=== PATIENT | male | born 1995 | race African-American/Black ===

== ENCOUNTER → 2018-12-22 | Outpatient (CLI) | payer OTHER | LOC: OD 09:33 | PROVIDERS: ATTEND Otolaryngology | DX: J30.9 Allergic rhinitis, unspecified (principal) | CPT/HCPCS: 36415; 82785; 86003 ==

== ENCOUNTER 2019-01-24 09:01 | Day surgery (SDC) | payer OTHER ==
[~2019-01-24 09:01] MED LIST: CEFAZOLIN 2 GM/D5W RTU 2 GM/50 ML RTUPB IV PRN; CEFAZOLIN SODIUM 2 GM in DEXTROSE 5%-WATER 100 ML IV PRN; DEXAMETHASONE SOD PHOS INJ 10 MG/1 ML VIAL ONE; FENTANYL CITRATE INJ/PF 100 MCG/2 ML AMPUL ONE; GLYCOPYRROLATE INJ 0.4 MG/2 ML VIAL ONE; LIDOCAINE 2% INJ-PF (100 MG/5 ML) SYRINGE ONE; MIDAZOLAM 2 MG/2 ML INJ ONE; ONDANSETRON HCL INJ/PF 4 MG/2 ML SDV ONE; PROPOFOL INJ 200 MG/20 ML VIAL IV ONE; SUCCINYLCHOLINE CHLORIDE INJ 200 MG/10 ML VIAL ONE
[2019-01-24] MEDS ORDERED: BACITRACIN ZINC OINTMENT 15 GM ONE (09:39)
[2019-01-24] MEDS ORDERED: COCAINE HCL 4% TOPICAL SOLN 4 ML ONE (09:40)
[2019-01-24] MEDS ORDERED: LIDOCAINE 2%/EPINEPHRINE INJ 1.7 ML CARTRIDGE ONE (09:40)
[2019-01-24] MEDS: OXYMETAZOLINE HCL 0.05% NASAL SPRAY 15 ML BOTTLE ONE ×2 (10:10→10:44)
--- NOTE | 2019-01-24 11:08 | Operative Report ---
Operative Report-[facility] Operative Report: Date: 24 January 2019 History: presents with a history of nasal dyspnea. Physical exam revealed a deviated nasal septum and inferior turbinate hypertrophy. Presents today for a septoplasty and turbinate reduction Pre-operative diagnosis: 1. Deviated nasal septum 2. Inferior turbinate hypertrophy Post operative diagnosis: same as above. Procedure: 1. Nasal septoplasty 2. Inferior turbinate reduction, right side 3 . Inferior turbinate reduction, left side Surgeon: Keshawn Lira MD, [facility] Anesthia: RITCHIE Description of the procedure: After receiving informed consent, the patient was brought to the operating room and placed supine on the operating table. After successful insuction and intubation by anesthesia, cottonoids soaked with 4% cocaine replaced into each nasal cavity for approximately five minutes. They were removed andthe septum along with the inferior turbinate were injections with 2% Xylocaine with 1:100,000 epinephrine. The cottonoids were replaced. The patient was then prepped and draped in a sterile fashion. The cottonoids where then removed. A number 15 blade was used to make a mildred transfixtion incision on the left side. Next using a Amato and then A Erath elevator, a mucoperichondrial/mucoperiosteal flap was elevated back to the sphenoid rostrum. This was then elevated onto the nasal floor. A mucoperichondrial flap was elevated around the caudal edge of the septum and onto the right side. This exposed both sides of the cartilaginous septum. The osseocartilaginous junction was and a mucoperiosteal flap was elevated on the right side. Benoit scissors were used to make horizontal cuts in the perpendicular plate of the ethmoid bone, superiorly and inferiorly. Wamsutter-Muse forceps were used to remove this. A vomeroethmoid spur was identified and the mucosa was carefully dissected from it. A V-chisel was used to remove this spur. An inferior cartilage spur was removed using a D knife . The mucosa was carefully dissected around the maxillary crest spur and using the V chisel this spur was removed. The septum was viewed with the flaps in place and found to be relatively straight. The root of the middle turbinates were visible on both sides. The mildred transfixion incision was closed using 4-0 chromic and a 4-0 plain gut wip stitch was used to secure the septal flaps. Attention was then directed to the inferior turbinates where an inferior turbinate reduction was performed bilaterally. The Celon was used to perform an intramural cauterization bilaterally. Then each turbinate was medialized and then lateralized using a Sayer elevator . Silicon splints coated with bacitracin were placed into each nasal cavity and secured with a 2-0 prolene. Afrin soaked cottonoids were placed into each nasal cavity and secured to each other in front of the nose. The patient was then given back to anesthesia who successfully extubated them. The patient tolerated the procedure well without any complications. Estimated blood loss: 15 mL Fluids: 500 mL The patient was transferred to the post anesthesia care unit in stable condition with spontaneous respirations.
== END 2019-01-24 12:16 | disposition home or self-care (01) ==
LOC: SC 09:01
PROVIDERS: ATTEND Otolaryngology
DX: J34.2 Deviated nasal septum (principal); J34.3 Hypertrophy of nasal turbinates; J30.9 Allergic rhinitis, unspecified
CPT/HCPCS: 30802; 30520; J2250; J3490 ×4; J3010; J2001; J0330; J2405; J2704; J1100; J0690; J7060